=== PATIENT | female | born 1995 | race Caucasian/White ===

== ENCOUNTER 2023-11-30 18:24 | Emergency (ER) | payer MEDICAID, OTHER ==
[~2023-11-30] VITALS: Ht 167.6 cm; Wt 110.3 kg
[2023-11-30 19:45] LABS: Urine Bacteria FEW /hpf (None Seen); Urine Blood 1+ /uL (Negative); Urine Clarity Clear (Clear); Urine Color Yellow (Yellow); Urine Mucus FEW (None Seen); Urine Protein, UAD 1+ (Negative); Urine Urobilinogen 6 mg/dL (Negative); Urine WBC 3 /hpf (0 - 5)
[2023-11-30 19:45] LABS: Basophils # (auto) 0.1 10 ^3/uL (0-0.2); Basophils % (auto) 0.7 % (0.0-2.0); Eosinophils # (auto) 0.1 10 ^3/uL (0-0.8); Eosinophils % (auto) 1.1 % (0.0-7.0); Hemoglobin 13.1 g/dL (12.2-16.2); Lymphocytes # (auto) 2.1 10 ^3/uL (0.4-5.4); Lymphocytes % (auto) 28.1 % (10.0-50.0); Mean Corpuscular Hemoglobin 27.8 pg (28.0-32.0); Mean Corpuscular Hgb Conc. 33.6 g/dL (32.0-36.0); Mean Corpuscular Volume 82.9 fL (80.0-100.0); Monocytes # (auto) 0.2 10 ^3/uL (0-1.3); Monocytes % (auto) 2.1 % (0.0-12.0); Nucleated Red Blood Cells % 0.1 %; Platelet Count (auto) 289 10^3/uL (140-450); Red Blood Cells 4.71 10^6/uL (4.0-5.20); Red Cell Distribution Width 13.9 % (11.8-14.3); White Blood Cell 7.4 10^3/uL (4.4-10.8)
[2023-11-30 19:53] LABS: Urine Specific Gravity > 1.050 (1.001-1.035)
[2023-11-30 20:00] LABS: Alanine Aminotransferase 193 U/L (7-40); Albumin 4.1 g/dL (3.2-4.8); Alkaline Phosphatase 136 U/L (46-116); Anion Gap 7 (5-15); Aspartate Aminotransferase 427 U/L (13-40); BUN/Creatinine Ratio 13.6 (10.0-20.0); Blood Urea Nitrogen 12 mg/dL (9-23); Carbon Dioxide 26 mmol/L (20-30); Chloride 109 mmol/L (98-107); Glucose 109 mg/dL (74-106); Lipase 31 U/L (12-53); Potassium 3.8 mmol/L (3.5-5.1); Sodium 142 mmol/L (136-145)
[2023-11-30 20:01] LABS: Bilirubin, Total 0.7 mg/dL (0.2-1.0); Total Protein 6.9 g/dL (5.7-8.2)
[2023-11-30 20:58] VITALS: PULSE 105; RESP 16; O2SAT 97
[2023-11-30] MEDS: SODIUM CHLORIDE 0.9% 1,000 ML IVB ONE (21:16)
[2023-11-30] MEDS: ONDANSETRON HCL 4 MG/2 ML VIAL IV ONE (21:19)
[2023-11-30] MEDS: metroNIDAZOLE 500MG/100ML 100 ML IV ONE (21:20)
[2023-11-30] MEDS: MORPHINE SULFATE 4 MG/ML SYR/VIAL IV ONE (21:21)
[2023-12-01 00:11] VITALS: BP 97/71; PULSE 63; RESP 16; TEMP 97.7; O2SAT 100
== END 2023-12-01 00:30 | disposition short-term general hospital (02) ==
LOC: EDSEX 18:24 → ER 18:24
DX: K52.9 Noninfective gastroenteritis and colitis, unspecified (principal); Z90.49 Acquired absence of other specified parts of digestive tract
CPT/HCPCS: 36415; 74176; 80053; 81001; 82010; 83690; 85025; 96365; 96375; 99285; J2270; J2405; J3490; J7030

== ENCOUNTER 2024-01-09 14:31 | Emergency (ER) | payer OTHER ==
[~2024-01-09] VITALS: Ht 167.6 cm; Wt 117.3 kg
[2024-01-09 15:22] LABS: Urine Bacteria None Seen /hpf (None Seen); Urine Blood 1+ /uL (Negative); Urine Clarity Turbid (Clear); Urine Color Yellow (Yellow); Urine Mucus FEW (None Seen); Urine Protein, UAD 1+ (Negative); Urine Specific Gravity 1.042 (1.001-1.035); Urine Urobilinogen 2 mg/dL (Negative); Urine WBC 8 /hpf (0 - 5); Urine pH 6.5 (5.0-9.0)
[2024-01-09] MEDS: methylPREDNISolone SOD SUCC 125 MG/2 ML VL IM ONE (16:22)
[2024-01-09] MEDS: KETOROLAC TROMETH 30 MG/ML 1ML VIAL IM ONE (16:23)
[2024-01-09] MEDS: HYDROcodone-ACET 5/325MG TAB PO ONE (16:24)
[2024-01-09] MEDS ORDERED: NAPR-746 PO (16:45)
[2024-01-09] MEDS ORDERED: LIDO5DIS21 TOP (16:45)
[2024-01-09] MEDS ORDERED: METH4PAK PO (16:45)
[2024-01-09] MEDS ORDERED: NITR-87 PO (16:47)
[2024-01-09 16:48] VITALS: BP 120/82; PULSE 82; RESP 18; TEMP 98.1; O2SAT 99
== END 2024-01-09 16:53 | disposition home or self-care (01) ==
LOC: ER 14:34
DX: M54.16 Radiculopathy, lumbar region (principal); N30.90 Cystitis, unspecified without hematuria; Z79.899 Other long term (current) drug therapy; Z90.49 Acquired absence of other specified parts of digestive tract
CPT/HCPCS: 81001; 96372; 99284; J1885; J2919